=== PATIENT | female | born 1980 | race Hispanic/Latino ===

== ENCOUNTER 2023-03-31 09:12 | Emergency (ER) | payer OTHER ==
--- NOTE | 2023-03-31 09:41 | ER ---
Nurse's Notes [facility] Name: Ca Jovel Age: 42 yrs Sex: Female : 1980 Arrival Date: 03/31/2023 Time: 09:12 Bed IW1 Private MD: Diagnosis: Meningitis exposure Presentation: 03/31 09:26 Chief complaint: Patient states: she was exposed to a patient with potential bacterial ap3 meningitis yesterday. Coronavirus screen: At this time, the client does not indicate any symptoms associated with coronavirus-19. Ebola Screen: No symptoms or risks identified at this time. Initial Sepsis Screen: Does the patient meet any 2 criteria? No. Patient's initial sepsis screen is negative. Does the patient have a suspected source of infection? No. Patient's initial sepsis screen is negative. Risk Assessment: Do you want to hurt yourself or someone else? Patient reports no desire to harm self or others. Onset of symptoms is unknown. 09:26 Method Of Arrival: Ambulatory ap3 09:26 Acuity: SAMPSON 4 ap3 Triage Assessment: 09:28 General: Appears in no apparent distress. Behavior is calm, cooperative, appropriate ap3 for age. Pain: Denies pain. Neuro: Level of Consciousness is awake, alert, obeys commands, Oriented to person, place, time, situation, Appropriate for age. Cardiovascular: Patient's skin is warm and dry. Respiratory: Airway is patent Respiratory effort is even, unlabored, Respiratory pattern is regular, symmetrical. 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 - Social history:: Smoking status: Patient denies any tobacco usage or history of. Screenin:28 [facility] ED Fall Risk Assessment (Adult) History of falling in the last 3 months, ap3 including since admission No falls in past 3 months (0 pts). Abuse screen: Denies threats or abuse. Nutritional screening: No deficits noted. Tuberculosis screening: No symptoms or risk factors identified. Vital Signs: : BP 144 / 88; Pulse 75; Resp 17; Pulse Ox 99% ; ap3 ED Course: 09:13 Patient arrived in ED. rg4 09:14 Zan Kessler DO is Attending Physician. ms3 09:28 Triage completed. ap3 09:29 Arm band placed on right wrist. ap3 09:29 Patient has correct armband on for positive identification. Provided Education on: ap3 discharge instructions. 09:29 No provider procedures requiring assistance completed. ap3 09:29 Patient did not have IV access during this emergency room visit. ap3 Administered Medications: :29 Drug: Ciprofloxacin PO 500 mg PO once Route: PO; db Medication: :29 VIS not applicable for this client. ap3 Outcome: :40 Discharge ordered by . ms3 09:40 Discharged to home ambulatory, ap3 09:40 Condition: good 09:40 Discharge instructions given to patient, Instructed on discharge instructions, follow up and referral plans. Demonstrated understanding of instructions, follow-up care, 09:41 Patient left the ED. ap3 Signatures: Suni Fraser rg4 Elen Contreras RN RN ap3 Zan Kessler DO DO ms3 Virgen Argueta, RN RN db
--- NOTE | 2023-03-31 09:41 | EDPHYS ---
Physician Documentation [facility] Name: Ca Jovel Age: 42 yrs Sex: Female : 1980 Arrival Date: 03/31/2023 Time: 09:12 Bed IW1 Private MD: ED Physician Zan Kessler HPI: 03/31 09:44 This 42 yrs old Female presents to ER via Ambulatory with complaints of ms3 Exposure. 09:44 42-year-old female with past medical history of hypothyroidism presents to the [facility] emergency department status post exposure to meningitis while at work. 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 Patient denies fevers, chills, nausea, vomiting. 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 - Social history:: Smoking status: Patient denies any tobacco usage or history of. ROS: 09:44 Constitutional: Negative for fever, and chills. Neck: Negative for injury, pain, and ms3 swelling, Cardiovascular: Negative for chest pain, and palpitations. Respiratory: Negative for shortness of breath, cough, wheezing, and pleuritic chest pain, Abdomen/GI: Negative for abdominal pain, nausea, vomiting, diarrhea, and constipation, MS/Extremity: Negative for injury and deformity, Skin: Negative for injury, rash, and discoloration, Neuro: Negative for headache, weakness, numbness, tingling. 09:44 All other systems are negative, Exam: 09:44 Constitutional: This is a well developed, well nourished patient who is awake, alert, ms3 and in no acute distress. Head/Face: Normocephalic, atraumatic. Neck: Trachea midline, no cervical lymphadenopathy. Supple, full range of motion without nuchal rigidity, or vertebral point tenderness. No Meningismus. Chest/axilla: Normal chest wall appearance and motion. Nontender with no deformity. Cardiovascular: Regular rate and rhythm with a normal S1 and S2. No gallops, murmurs, or rubs. Normal PMI, no JVD. No pulse deficits. Respiratory: Lungs have equal breath sounds bilaterally, clear to auscultation and percussion. No rales, rhonchi or wheezes noted. No increased work of breathing, no retractions or nasal flaring. Abdomen/GI: Soft, non-tender, with normal bowel sounds. No distension or tympany. No guarding or rebound. No evidence of tenderness throughout. Skin: Warm, dry with normal turgor. Normal color with no rashes, no lesions, and no evidence of cellulitis. MS/ Extremity: Pulses equal, no cyanosis. Neurovascular intact. Full, normal range of motion. Vital Signs: 09:26 BP 144 / 88; Pulse 75; Resp 17; Pulse Ox 99% ; ap3 MDM: 09:16 Patient medically screened. sb4 09:44 Differential Diagnosis Meningitis exposure. Data reviewed: vital signs, nurses notes, ms3 and as a result, I will discharge patient. I considered the following discharge prescriptions or medication management in the emergency department Medications were administered in the Emergency Department. See MAR. Care significantly affected by the following chronic conditions: Hypothyroidism. Counseling: I had a detailed discussion with the patient and/or guardian regarding the historical points, exam findings, and any diagnostic results supporting the discharge/admit diagnosis, the need for outpatient follow up, to return to the emergency department if symptoms worsen or persist or if there are any questions or concerns that arise at home. Special discussion: I discussed with the patient/guardian in detail that at this point there is no indication for admission to the hospital. It is understood, however, that if the symptoms persist or worsen the patient needs to return immediately for re-evaluation. ED course: . Administered Medications: 09:29 Drug: Ciprofloxacin PO 500 mg PO once Route: PO; db Disposition Summary: 03/31/23 09:40 Discharge Ordered Notes: Location: Home ms3 Condition: Stable ms3 Diagnosis - Meningitis exposure ms3 Followup: ms3 - With: Private Physician - When: 2 - 3 days - Reason: Recheck today's complaints Discharge Instructions: - Discharge Summary Sheet ms3 - Bacterial Meningitis, Adult ms3 Forms: - Medication Reconciliation Form ms3 - Thank You Letter ms3 - Antibiotic Education ms3 - Prescription Opioid Use ms3 - Patient Portal Instructions ms3 - Leadership Thank You Letter ms3 Signatures: Elen Contreras RN RN ap3 Zan Kessler DO DO ms3 Virgen Argueta RN RN db Brown, Beverly, PA-C PA-C sb4
[2023-03-31] MEDS ORDERED: CIPROFLOXACIN HCL 500 MG TAB ONE (09:42)
[2023-03-31 09:52] VITALS: BP 144/88; O2SAT 99
== END 2023-03-31 09:41 | disposition home or self-care (01) ==
LOC: ER 09:12
DX: Z20.811 Contact with and (suspected) exposure to meningococcus (principal); E03.9 Hypothyroidism, unspecified
CPT/HCPCS: 99283

== ENCOUNTER → 2023-06-09 | Emergency (ER) | payer BC, OTHER ==
[~2023-06-09] MED LIST: KETOROLAC 30 MG/ML INJ ONE; methocarbamoL 750 MG TAB ONE
--- OUTSIDE RECORDS SUMMARY | 2023-06-09 04:58 | XMS REPORT | Continuity of Care Document ---
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
--- NOTE | 2023-06-09 07:18 | ER ---
Nurse's Notes [facility] Name: Ca Jovel Age: 42 yrs Sex: Female : 1980 Arrival Date: 06/09/2023 Time: 04:57 Bed 19 Private MD: Diagnosis: Low back pain;Acute musculoskeletal back pain Presentation: 06/09 05:03 Chief complaint: Patient states: pt reports left upper back pain starting at the km8 beginning of the May that got worse Tuesday, was given muscle relaxers and a steroid dose pack with no relief; now pain is radiating down left thigh and "feels numb". Coronavirus screen: Client denies travel out of the [place] in the last 14 days. Ebola Screen: No symptoms or risks identified at this time. Initial Sepsis Screen: Does the patient meet any 2 criteria? No. Patient's initial sepsis screen is negative. Does the patient have a suspected source of infection? No. Patient's initial sepsis screen is negative. Risk Assessment: Do you want to hurt yourself or someone else? Patient reports no desire to harm self or others. Onset of symptoms was June 05, 2023. 05:03 Method Of Arrival: Ambulatory km8 05:03 Acuity: SAMPSON 3 km8 Triage Assessment: 05:05 General: Appears in no apparent distress. uncomfortable, Behavior is cooperative, km8 appropriate for age, restless. Pain: Complains of pain in left mid back Pain radiates to left quadriceps Pain currently is 6 out of 10 on a pain scale. Aggravated by repositioning, Noted to be restless. EENT: No signs and/or symptoms were reported regarding the EENT system. Neuro: Level of Consciousness is awake, alert, obeys commands, Oriented to person, place, time, situation, Reports numbness in left quadriceps. Cardiovascular: Denies chest pain, shortness of breath, Capillary refill < 3 seconds Patient's skin is warm and dry. Respiratory: Airway is patent Respiratory effort is even, unlabored, Respiratory pattern is regular, symmetrical. GI: No signs and/or symptoms were reported involving the gastrointestinal system. : No signs and/or symptoms were reported regarding the genitourinary system. Derm: No signs and/or symptoms reported regarding the dermatologic system. Skin is intact, is healthy with good turgor, Skin is dry, Skin is pink, warm \\T\\ dry. normal, Skin temperature is warm. Musculoskeletal: Range of motion: intact in all extremities, Reports numbness in left quadriceps pain in left mid back. 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 - Social history:: Smoking status: Patient denies any tobacco usage or history of. Patient/guardian denies using alcohol, street drugs. - Family history:: not pertinent. Screenin:09 [facility] ED Fall Risk Assessment (Adult) History of falling in the last 3 months, 8 including since admission No falls in past 3 months (0 pts) Confusion or Disorientation No (0 pts) Intoxicated or Sedated No (0 pts) Impaired Gait No (0 pts) Mobility Assist Device Used No (0 pt) Altered Elimination No (0 pt) Score/Fall Risk Level 0 - 2 = Low Risk Oriented to surroundings, Maintained a safe environment, Educated pt \\T\\ family on fall prevention, incl call for assistance when getting out of bed, Assessed \\T\\ reinforced patient's understanding of fall precautions. Abuse screen: Denies threats or abuse. Denies injuries from another. Nutritional screening: No deficits noted. Tuberculosis screening: No symptoms or risk factors identified. Assessment: 05:09 Reassessment: see triage assessment/notes. [facility] 06:30 Reassessment: Patient appears in no apparent distress at this time. Patient and/or 8 family updated on plan of care and expected duration. Pain level reassessed. Patient is alert, oriented x 3, equal unlabored respirations, skin warm/dry/pink. Patient states symptoms have improved. Vital Signs: 05:03 BP 145 / 84; Pulse 65; Resp 16; Temp 97(TE); Pulse Ox 97% on R/A; Weight 136.08 kg (R); km8 Height 5 ft. 5 in. ; Pain 6/10; 05:03 Body Mass Index 49.92 (136.08 kg, 165.1 cm) km8 05:03 Pain Scale: Adult km8 [place] Coma Score: 05:09 Eye Response: spontaneous(4). Motor Response: obeys commands(6). Verbal Response: km8 oriented(5). Total: 15. ED Course: 04:58 Patient arrived in ED. jj6 05:03 Nick Lay MD is Attending Physician. sp4 05:05 Triage completed. km8 05:05 Arm band placed on right wrist. km8 05:09 Patient has correct armband on for positive identification. Bed in low position. Call km8 light in reach. Side rails up X 1. Pulse ox on. NIBP on. 05:09 No provider procedures requiring assistance completed. Patient maintains SpO2 km8 saturation greater than 95% on room air. 05:22 Quin Waters, MELVIN is Primary Nurse. km8 06:19 CT Abd/Pelvis - Without Contrast In Process Unspecified. EDMS 07:17 Yang Monsalve DO is Referral Physician. sp4 07:28 Patient did not have IV access during this emergency room visit. km8 Administered Medications: 05:28 Drug: Ketorolac IM 60 mg IM once Route: IM; Site: right ventrogluteal; km8 07:28 Follow up: Response: No adverse reaction; Pain is decreased km8 05:28 Drug: Methocarbamol PO 1500 mg PO once Route: PO; km8 07:28 Follow up: Response: No adverse reaction; Pain is decreased km8 Medication: 05:09 VIS not applicable for this client. km8 Outcome: 07:18 Discharge ordered by . sp4 07:34 Patient left the ED. rs5 Signatures: Dispatcher [employer] EDMS Trinidad Elizalde jj6 Candido Green RN RN rs5 Nick Lay MD MD sp4 Quin Waters RN RN km8
--- NOTE | 2023-06-09 07:18 | EDPHYS ---
Physician Documentation [facility] Name: Ca Jovel Age: 42 yrs Sex: Female : 1980 Arrival Date: 06/09/2023 Time: 04:57 Bed 19 Private MD: ED Physician Nick Lay HPI: 06/09 05:45 This 42 yrs old Female presents to ER via Ambulatory with complaints of Back sp4 Pain. 05:45 42-year-old female presents with complaint of left lower back pain starting in the sp4 beginning of May. Patient states pain is located left lower buttock also over left iliac crest rating down the left buttock . 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 - Social history:: Smoking status: Patient denies any tobacco usage or history of. Patient/guardian denies using alcohol, street drugs. - Family history:: not pertinent. ROS: 05:45 Constitutional: Negative for fever, chills, and weight loss, Back: Positive for back sp4 pain 05:45 All other systems are negative, Exam: 05:45 Constitutional: This is a well developed, well nourished patient who is awake, alert, sp4 and in no acute distress. Head/Face: Normocephalic, atraumatic. Eyes: Pupils equal round and reactive to light, extra-ocular motions intact. Lids and lashes normal. Conjunctiva and sclera are not injected. Cornea within normal limits. Periorbital areas with no swelling, redness, or edema. ENT: Nares patent. No nasal discharge, no septal abnormalities noted. Tympanic membranes are normal and external auditory canals are clear. Oropharynx with no redness, swelling, or masses, exudates, or evidence of obstruction, uvula midline. Mucous membranes moist. Neck: Trachea midline, no thyromegaly or masses palpated, and no cervical lymphadenopathy. Supple, full range of motion without nuchal rigidity, or vertebral point tenderness. Chest/axilla: Normal chest wall appearance and motion. Nontender with no deformity. No lesions are appreciated. Cardiovascular: Regular rate and rhythm with a normal S1 and S2. No gallops, murmurs, or rubs. Normal PMI, no JVD. No pulse deficits. Respiratory: Lungs have equal breath sounds bilaterally, clear to auscultation and percussion. No rales, rhonchi or wheezes noted. No increased work of breathing, no retractions or nasal flaring. Abdomen/GI: Soft, non-tender, with normal bowel sounds. No distension or tympany. No guarding or rebound. No evidence of tenderness throughout. Back: No spinal tenderness. No costovertebral tenderness. Skin: Warm, dry with normal turgor. Normal color with no rashes, no lesions, and no evidence of cellulitis. MS/ Extremity: Pulses equal, no cyanosis. Neurovascular intact. Full, normal range of motion. Neuro: Awake and alert, GCS 15, oriented to person, place, time, and situation. Cranial nerves II-XII grossly intact. Motor strength 5/5 in all extremities. Sensory grossly intact. Psych: Awake, alert, with orientation to person, place and time. Behavior, mood, and affect are within normal limits Vital Signs: 05:03 BP 145 / 84; Pulse 65; Resp 16; Temp 97(TE); Pulse Ox 97% on R/A; Weight 136.08 kg (R); km8 Height 5 ft. 5 in. ; Pain 6/10; 05:03 Body Mass Index 49.92 (136.08 kg, 165.1 cm) [facility] 05:03 Pain Scale: Adult km8 [place] Coma Score: 05:09 Eye Response: spontaneous(4). Motor Response: obeys commands(6). Verbal Response: km8 oriented(5). Total: 15. MDM: 05:03 Patient medically screened. sp4 07:07 Differential diagnosis: Fatigue Fracture Myeloma Neoplasm ruptured disc. Data reviewed: sp4 vital signs, nurses notes, radiologic studies, CT scan. ED course: CLINICAL HISTORY: left spinal and pelvic pain COMPARISON: None. 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 FINDINGS: Lower lungs are clear. Abdomen: The liver is normal in appearance. There is no biliary dilatation. Gallbladder is normal in appearance. The pancreas and spleen are normal in appearance. The adrenal glands and kidneys are unremarkable. Abdominal aorta is normal in course and caliber without aneurysm. There is no free air. There is no retroperitoneal adenopathy. Pelvis: There is no bowel obstruction. Urinary bladder is unremarkable. There is no free fluid. Uterus is normal in size. Appendix is normal. Skeleton: There are no acute osseous findings. No suspicious bony lesions. IMPRESSION: No acute findings. Electronically signed by: Rudy Arshad MD 06/09/2023 06:42 AM. ED course: Pain has improved after Toradol. . ED course: Patient stable to discharge home with Robaxin and as needed ibuprofen Tylenol every 6 hours. Pain does not improve in 2 weeks will advise to pursue MRI of the L-spine. Will recommend 1 week of bedrest off work for 1 week. . 06/09 05:23 Order name: CT Abd/Pelvis - Without Contrast sp4 Administered Medications: 05:28 Drug: Ketorolac IM 60 mg IM once Route: IM; Site: right ventrogluteal; [facility] 07:28 Follow up: Response: No adverse reaction; Pain is decreased [facility] 05:28 Drug: Methocarbamol PO 1500 mg PO once Route: PO; km8 07:28 Follow up: Response: No adverse reaction; Pain is decreased [facility] Disposition Summary: 06/09/23 07:18 Discharge Ordered Problem: new sp4 Symptoms: have improved sp4 Condition: Stable sp4 Diagnosis - Low back pain sp4 - Acute musculoskeletal back pain sp4 Followup: sp4 - With: Yang Monsalve DO - When: 7 - 10 days - Reason: Recheck today's complaints Discharge Instructions: - Discharge Summary Sheet sp4 - Lumbar Sprain sp4 Forms: - Patient Portal Instructions sp4 - Work release form km8 Prescriptions: - methocarbamol 750 mg Oral tablet - take 2 tablets ORAL route every 6 hours for 2 days; 60 tablet; Refills: 0, sp4 Product Selection Permitted Signatures: Dispatcher [id number] Nick Merino MD MD sp4 Quin Waters, MELVIN RN km8
[2023-06-09 08:39] VITALS: BP 145/84; TEMP 97; O2SAT 97
--- NOTE | 2023-06-09 10:09 | RAD REPORT ---
EXAM DESCRIPTION: CT - Abdomen Pelvis Wo Contrast - 06/09/2023 7:15 am CLINICAL HISTORY: Left spinal and pelvic pain COMPARISON: None. 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 FINDINGS: Lower lungs are clear. Abdomen: The liver is normal in appearance. There is no biliary dilatation. Gallbladder is normal in appearance. The pancreas and spleen are normal in appearance. The adrenal glands and kidneys are unre markable. Abdominal aorta is normal in course and caliber without aneurysm. There is no free air. There is no r etroperitoneal adenopathy. Pelvis: There is no bowel obstruction. Urinary bladder is unremarkable. There is no free fluid. Uteru s is normal in size. Appendix is normal. Skeleton: There are no acute osseous findings. No suspicious bony lesions. IMPRESSION: No acute findings. Electronically signed by: Rudy Arshad MD 06/09/2023 06:42 AM ACCOUNT MANAGER Due to temporary technical issues with the PACS/Fluency reporting system, reports are being signed by the in house radiologist without review as a courtesy to ensure prompt reporting. The interpreting r adiologist is fully responsible for the content of the report.
== END ==
LOC: ER 04:57
DX: M79.18 Myalgia, other site (principal); E03.9 Hypothyroidism, unspecified; Z98.82 Breast implant status
CPT/HCPCS: 74176